=== PATIENT | female | born 1975 | race African-American/Black ===

== ENCOUNTER 2017-06-16 06:42 | Inpatient (IN) | payer MEDICARE, MEDICAID ==
[~2017-06-16] VITALS: Ht 152.4 cm; Wt 63.1 kg
[2017-06-16] VITALS (22 sets, daily range): BP systolic 89–163; BP diastolic 23–107
[2017-06-16] MEDS ORDERED: ALBUTEROL (0.083%) 2.5MG/3ML NEB HHN STA ×3 (06:53→12:48)
[2017-06-16] MEDS ORDERED: METHYLPREDNISOLONE SOD SUCC 125 MG/2 ML VIAL IV STA (06:53)
[2017-06-16] MEDS ORDERED: IPRATROPIUM BROMIDE (0.02%) 0.5MG/2.5ML NEB HHN STA (06:53)
[2017-06-16] MEDS ORDERED: ALBUTEROL (0.5%) 2.5MG/0.5ML NEB HHN ONE (07:41)
[2017-06-16] MEDS ORDERED: MAGNESIUM 2 G PREMIX 50 ML IV STA (08:25)
[2017-06-16 09:51] LABS: BASOPHILS % 0.3 % (0.0-2.0); EOSINOPHILS % 0.1 % (0.0-5.0); HEMATOCRIT. 38.7 % (36.0-48.0); LYMPHOCYTES % 7.3 % (20.0-50.0); MEAN CORPUSCULAR HEMOGLOBIN 31.9 pg (28.0-32.0); MEAN CORPUSCULAR VOLUME 94.8 fL (81.0-99.0); MEAN PLATELET VOLUME 6.2 fl (7.4-10.4); NEUTROPHILS % 89.3 % (40.0-76.0); PLATELET 555 x1000/uL (130-400); RED BLOOD CELL COUNT 4.08 mill/uL (4.2-5.4)
[2017-06-16 09:55] LABS: CHLORIDE 109 mEq/L (98-107)
[2017-06-16 10:10] LABS: BG BASE EXCESS -7.3 mmol/L (-2.0-2.0); BG CARBOXYHEMOGLOBIN 0.6 % (0.5-1.5); BG DEOXYHEMOGLOBIN 4.9 % (0.0-5.0); BG FRACTION INSPIRED OXYGEN 32; BG METHEMOGLOBIN 0.3 % (0.0-1.5); BG OXYGEN SATURATION 95.1 % (92.0-98.5); BG OXYHEMOGLOBIN 94.2 % (94.0-97.0); BG PCO2 27.3 mmHg (35.0-45.0); BG PH 7.386 (7.350-7.450); BG PO2 77.6 mmHg (75.0-100.0); BG SAMPLE SITE RIGHT RADIAL; BG TOTAL HEMOGLOBIN 14.5 g/dL (12.0-18.0); BG VENT MODE NASAL CANNULA
[2017-06-16] MEDS ORDERED: IPRATROPIUM/ALBUTEROL 0.5-3(2.5)MG/3ML NEB HHN PRN (11:30)
[2017-06-16] MEDS ORDERED: CLONIDINE 0.1MG TABLET PO PRN (12:15)
[2017-06-16] MEDS ORDERED: DIPHENHYDRAMINE 50MG/ML VIAL IV PRN (12:15)
[2017-06-16] MEDS ORDERED: HYDROCODONE/ACETAMINOPHEN 5/325MG TABLET PO PRN (12:15)
[2017-06-16] MEDS ORDERED: ONDANSETRON HCL 4MG/2ML VIAL IV PRN (12:15)
[2017-06-16] MEDS ORDERED: ACETAMINOPHEN 325MG TABLET PO PRN (12:15)
[2017-06-16] MEDS ORDERED: AZITHROMYCIN 500 MG in DEXT 5% WATER 250 ML IV SCH (14:00)
[2017-06-16] MEDS: IPRATROPIUM/ALBUTEROL 0.5-3(2.5)MG/3ML NEB HHN SCH ×3 (14:25→20:48)
[2017-06-16] MEDS: BUDESONIDE 0.5MG/2ML NEB HHN SCH ×2 (14:25→20:48)
[2017-06-16] MEDS ORDERED: DILTIAZEM HCL 60MG TABLET PO SCH (14:45)
[2017-06-16] MEDS: METHYLPREDNISOLONE SOD SUCC 40 MG/ML VIAL IV SCH ×2 (15:22→20:39)
[2017-06-16] MEDS: AZITHROMYCIN 500 MG in SODIUM CHLORIDE 0.9% 250 ML IV SCH (16:18)
[2017-06-16 16:29] LABS: BG BASE EXCESS -7.2 mmol/L (-2.0-2.0); BG BILEVEL POS AIRWAY PRESSURE 15/5; BG CARBOXYHEMOGLOBIN 0.5 % (0.5-1.5); BG DEOXYHEMOGLOBIN 2.1 % (0.0-5.0); BG FRACTION INSPIRED OXYGEN 40; BG HCO3 ACT 18.5 mmol/L (22.0-26.0); BG METHEMOGLOBIN 0.2 % (0.0-1.5); BG OXYGEN SATURATION 97.9 % (92.0-98.5); BG OXYHEMOGLOBIN 97.2 % (94.0-97.0); BG PCO2 38.1 mmHg (35.0-45.0); BG PH 7.304 (7.350-7.450); BG PO2 114.2 mmHg (75.0-100.0); BG SAMPLE SITE RIGHT RADIAL; BG TOTAL HEMOGLOBIN 13.8 g/dL (12.0-18.0); BG VENT MODE MASK - BIPAP; BG VENT RATE 18 set
[2017-06-16] MEDS: MONTELUKAST SODIUM 10MG TABLET PO SCH (17:37)
[2017-06-16] MEDS: CEFTRIAXONE 1 G PREMIX 50 ML IV SCH (17:37)
[2017-06-16] MEDS ORDERED: PROPOFOL 10MG/ML 100ML 100 ML IV PRN (18:00)
[2017-06-16 19:59] LABS: BG BASE EXCESS -7.2 mmol/L (-2.0-2.0); BG BILEVEL POS AIRWAY PRESSURE 15/5; BG CARBOXYHEMOGLOBIN 0.3 % (0.5-1.5); BG DEOXYHEMOGLOBIN 1.5 % (0.0-5.0); BG FRACTION INSPIRED OXYGEN 40; BG METHEMOGLOBIN 0.1 % (0.0-1.5); BG OXYGEN SATURATION 98.5 % (92.0-98.5); BG OXYHEMOGLOBIN 98.1 % (94.0-97.0); BG PCO2 40.9 mmHg (35.0-45.0); BG PH 7.286 (7.350-7.450); BG PO2 140.3 mmHg (75.0-100.0); BG SAMPLE SITE RIGHT BRACHIAL; BG TOTAL HEMOGLOBIN 13.8 g/dL (12.0-18.0); BG VENT MODE MASK - BIPAP; BG VENT RATE 18 set
[2017-06-16] MEDS: LORAZEPAM 2MG/ML CPJ IV SCH (21:24)
[2017-06-16] MEDS: DILTIAZEM HCL 60MG TABLET PO SCH (21:39)
[2017-06-16 21:56] LABS: BG BILEVEL POS AIRWAY PRESSURE 15/5; BG CARBOXYHEMOGLOBIN 0.5 % (0.5-1.5); BG DEOXYHEMOGLOBIN 1.3 % (0.0-5.0); BG FRACTION INSPIRED OXYGEN 40; BG HCO3 ACT 20.2 mmol/L (22.0-26.0); BG METHEMOGLOBIN 0.1 % (0.0-1.5); BG OXYGEN SATURATION 98.7 % (92.0-98.5); BG OXYHEMOGLOBIN 98.1 % (94.0-97.0); BG PCO2 42.5 mmHg (35.0-45.0); BG PH 7.295 (7.350-7.450); BG PO2 141.5 mmHg (75.0-100.0); BG SAMPLE SITE RIGHT RADIAL; BG TOTAL HEMOGLOBIN 13.6 g/dL (12.0-18.0); BG VENT MODE MASK - BIPAP
[2017-06-17] VITALS (57 sets, daily range): BP systolic 90–153; BP diastolic 43–105
[2017-06-17] MEDS: IPRATROPIUM/ALBUTEROL 0.5-3(2.5)MG/3ML NEB HHN SCH ×6 (00:12→19:50)
[2017-06-17] MEDS: LORAZEPAM 2MG/ML CPJ IV SCH ×4 (03:36→21:33)
[2017-06-17] MEDS: METHYLPREDNISOLONE SOD SUCC 40 MG/ML VIAL IV SCH (05:21)
[2017-06-17] MEDS: DILTIAZEM HCL 60MG TABLET PO SCH ×3 (05:22→21:33)
[2017-06-17 05:54] LABS: BASOPHILS % 0.1 % (0.0-2.0); HEMATOCRIT. 37.1 % (36.0-48.0); HEMOGLOBIN. 12.4 g/dL (12.0-16.0); LYMPHOCYTES % 10.5 % (20.0-50.0); MEAN CORPUSCULAR HEMOGLOBIN 31.9 pg (28.0-32.0); MEAN CORPUSCULAR VOLUME 95.6 fL (81.0-99.0); MEAN PLATELET VOLUME 6.9 fl (7.4-10.4); MONOCYTES % 4.8 % (2.0-8.0); NEUTROPHILS % 84.6 % (40.0-76.0); PLATELET 577 x1000/uL (130-400); RED BLOOD CELL COUNT 3.88 mill/uL (4.2-5.4); RED CELL DISTRIBUTION WIDTH 15.2 % (11.6-14.6)
[2017-06-17 06:15] LABS: CHLORIDE 106 mEq/L (98-107)
[2017-06-17 06:30] LABS: HDL CHOLESTEROL 49 mg/dL (40-59); LDL CHOLESTEROL 128 mg/dL (5-100)
[2017-06-17 07:43] LABS: CLARITY URINE CLOUDY (CLEAR); COLOR URINE YELLOW (YELLOW); KETONES URINE TRACE (NEGATIVE); LEUKOCYTE ESTERASE URINE NEGATIVE (NEGATIVE); NITRITE URINE NEGATIVE (NEGATIVE); OCCULT BLOOD URINE 3+ (NEGATIVE); PROTEIN URINE 2+ (NEGATIVE); SPECIFIC GRAVITY URINE 1.026 (1.005-1.030); UROBILINOGEN URINE 0.2 E.U./dL (0.2-1.0)
[2017-06-17 07:59] LABS: *AMPHETAMINES SCREEN URINE NEGATIVE (NEGATIVE); *BARBITURATES SCREEN URINE NEGATIVE (NEGATIVE); *COCAINE SCREEN URINE NEGATIVE (NEGATIVE)
[2017-06-17 08:01] LABS: METHADONE URINE SCREEN NEGATIVE (NEGATIVE); OPIATES URINE SCREEN NEGATIVE (NEGATIVE)
[2017-06-17 08:06] LABS: PHENCYCLIDINE URINE SCREEN NEGATIVE (NEGATIVE)
[2017-06-17 08:07] LABS: BG BASE EXCESS -1.4 mmol/L (-2.0-2.0); BG BILEVEL POS AIRWAY PRESSURE 15/5; BG CARBOXYHEMOGLOBIN 0.5 % (0.5-1.5); BG DEOXYHEMOGLOBIN 1.2 % (0.0-5.0); BG FRACTION INSPIRED OXYGEN 40; BG HCO3 ACT 23.9 mmol/L (22.0-26.0); BG OXYGEN SATURATION 98.8 % (92.0-98.5); BG OXYHEMOGLOBIN 98.3 % (94.0-97.0); BG PCO2 42.2 mmHg (35.0-45.0); BG PH 7.371 (7.350-7.450); BG PO2 141.9 mmHg (75.0-100.0); BG SAMPLE SITE RIGHT BRACHIAL; BG TOTAL HEMOGLOBIN 13.9 g/dL (12.0-18.0); BG VENT MODE MASK - BIPAP
[2017-06-17 08:07] LABS: *BENZODIAZEPINES SCREEN URINE NEGATIVE (NEGATIVE)
[2017-06-17 08:08] LABS: CANNABINOID URINE SCREEN PRESUMTIVE POSITIVE (NEGATIVE)
[2017-06-17] MEDS ORDERED: FAMOTIDINE 20MG TABLET PO ONE (09:00)
[2017-06-17] MEDS: BUDESONIDE 0.5MG/2ML NEB HHN SCH ×2 (09:18→19:50)
[2017-06-17] MEDS: LORATADINE 10MG TABLET PO SCH (09:58)
[2017-06-17] MEDS: FAMOTIDINE 20MG TABLET PO SCH ×2 (10:30→20:23)
[2017-06-17] MEDS: METHYLPREDNISOLONE SOD SUCC 125 MG/2 ML VIAL IV SCH ×2 (12:33→17:54)
[2017-06-17] MEDS ORDERED: LIDOCAINE HCL/PF 1% 2ML VIAL ONE (13:20)
[2017-06-17] MEDS: BENZONATATE 100MG CAPSULE PO SCH ×2 (14:52→21:32)
[2017-06-17] MEDS: AZITHROMYCIN 500 MG in SODIUM CHLORIDE 0.9% 250 ML IV SCH (14:53)
[2017-06-17] MEDS: CEFTRIAXONE 1 G PREMIX 50 ML IV SCH (14:53)
[2017-06-17] MEDS: MONTELUKAST SODIUM 10MG TABLET PO SCH (16:16)
[2017-06-17] MEDS: ATORVASTATIN CALCIUM 10MG TABLET PO SCH (20:23)
[2017-06-18] VITALS (39 sets, daily range): BP systolic 105–169; BP diastolic 54–117
[2017-06-18] MEDS: IPRATROPIUM/ALBUTEROL 0.5-3(2.5)MG/3ML NEB HHN SCH ×6 (00:23→20:04)
[2017-06-18] MEDS: METHYLPREDNISOLONE SOD SUCC 125 MG/2 ML VIAL IV SCH ×4 (00:42→17:05)
[2017-06-18] MEDS: LORAZEPAM 2MG/ML CPJ IV SCH ×4 (04:20→21:14)
[2017-06-18] MEDS: DILTIAZEM HCL 60MG TABLET PO SCH ×3 (05:42→21:13)
[2017-06-18] MEDS: BENZONATATE 100MG CAPSULE PO SCH ×3 (05:42→21:13)
[2017-06-18 05:57] LABS: HEMATOCRIT. 34.9 % (36.0-48.0); HEMOGLOBIN. 11.1 g/dL (12.0-16.0); MEAN CORPUSCULAR HEMOGLOBIN 30.6 pg (28.0-32.0); MEAN CORPUSCULAR VOLUME 96.7 fL (81.0-99.0); MEAN PLATELET VOLUME 6.9 fl (7.4-10.4); PLATELET 518 x1000/uL (130-400); RED BLOOD CELL COUNT 3.61 mill/uL (4.2-5.4); RED CELL DISTRIBUTION WIDTH 15.5 % (11.6-14.6)
[2017-06-18 06:21] LABS: CHLORIDE 106 mEq/L (98-107)
[2017-06-18 07:27] LABS: PLATELET ESTIMATE INCREAS
[2017-06-18] MEDS: BUDESONIDE 0.5MG/2ML NEB HHN SCH ×2 (08:30→20:04)
[2017-06-18] MEDS: FAMOTIDINE 20MG TABLET PO SCH ×2 (09:07→21:13)
[2017-06-18] MEDS: LORATADINE 10MG TABLET PO SCH (09:07)
[2017-06-18] MEDS: METRONIDAZOLE 500MG TABLET PO SCH ×2 (09:07→21:13)
[2017-06-18] MEDS: CEFTRIAXONE 1 G PREMIX 50 ML IV SCH (09:08)
[2017-06-18] MEDS: AZITHROMYCIN 500 MG in SODIUM CHLORIDE 0.9% 250 ML IV SCH (13:53)
[2017-06-18] MEDS: MONTELUKAST SODIUM 10MG TABLET PO SCH (16:23)
[2017-06-18] MEDS: ATORVASTATIN CALCIUM 10MG TABLET PO SCH (21:13)
[2017-06-19] VITALS (11 sets, daily range): BP systolic 106–151; BP diastolic 55–87
[2017-06-19] MEDS: IPRATROPIUM/ALBUTEROL 0.5-3(2.5)MG/3ML NEB HHN SCH ×7 (00:34→21:51)
[2017-06-19] MEDS: METHYLPREDNISOLONE SOD SUCC 125 MG/2 ML VIAL IV SCH ×4 (02:15→18:38)
[2017-06-19] MEDS: LORAZEPAM 2MG/ML CPJ IV SCH ×4 (06:35→21:31)
[2017-06-19] MEDS: BENZONATATE 100MG CAPSULE PO SCH ×3 (06:36→21:26)
[2017-06-19] MEDS: DILTIAZEM HCL 60MG TABLET PO SCH ×3 (06:36→21:29)
[2017-06-19] MEDS: BUDESONIDE 0.5MG/2ML NEB HHN SCH ×2 (07:54→21:51)
[2017-06-19 09:09] LABS: HEMATOCRIT. 34.2 % (36.0-48.0); HEMOGLOBIN. 11.4 g/dL (12.0-16.0); MEAN CORPUSCULAR HEMOGLOBIN 31.8 pg (28.0-32.0); MEAN CORPUSCULAR VOLUME 95.1 fL (81.0-99.0); MEAN PLATELET VOLUME 6.8 fl (7.4-10.4); PLATELET 542 x1000/uL (130-400); RED CELL DISTRIBUTION WIDTH 15.2 % (11.6-14.6)
[2017-06-19] MEDS: LORATADINE 10MG TABLET PO SCH (09:12)
[2017-06-19] MEDS: METRONIDAZOLE 500MG TABLET PO SCH ×2 (09:12→21:26)
[2017-06-19] MEDS: FAMOTIDINE 20MG TABLET PO SCH ×2 (09:12→21:26)
[2017-06-19 09:33] LABS: CHLORIDE 106 mEq/L (98-107)
[2017-06-19] MEDS: CEFTRIAXONE 1 G PREMIX 50 ML IV SCH (10:03)
[2017-06-19] MEDS ORDERED: TERBUTALINE SULFATE 1MG/ML VIAL SUBCUT NR (14:00)
[2017-06-19 14:02] LABS: PLATELET ESTIMATE INCREASED
[2017-06-19] MEDS: AZITHROMYCIN 500 MG in SODIUM CHLORIDE 0.9% 250 ML IV SCH (14:34)
[2017-06-19] MEDS: MONTELUKAST SODIUM 10MG TABLET PO SCH (16:35)
[2017-06-19] MEDS: ATORVASTATIN CALCIUM 10MG TABLET PO SCH (21:30)
[2017-06-20] VITALS (12 sets, daily range): BP systolic 97–141; BP diastolic 56–88
[2017-06-20] MEDS: METHYLPREDNISOLONE SOD SUCC 125 MG/2 ML VIAL IV SCH ×2 (01:35→05:58)
[2017-06-20] MEDS: IPRATROPIUM/ALBUTEROL 0.5-3(2.5)MG/3ML NEB HHN SCH ×6 (02:13→20:41)
[2017-06-20] MEDS: LORAZEPAM 2MG/ML CPJ IV SCH ×4 (04:46→22:00)
[2017-06-20] MEDS: BENZONATATE 100MG CAPSULE PO SCH ×3 (05:58→21:37)
[2017-06-20] MEDS: DILTIAZEM HCL 60MG TABLET PO SCH ×3 (05:58→21:37)
[2017-06-20 07:54] LABS: EOSINOPHILS % 0.1 % (0.0-5.0); HEMATOCRIT. 34.7 % (36.0-48.0); HEMOGLOBIN. 11.2 g/dL (12.0-16.0); LYMPHOCYTES % 9.3 % (20.0-50.0); MEAN CORPUSCULAR HEMOGLOBIN 30.8 pg (28.0-32.0); MEAN CORPUSCULAR VOLUME 95.6 fL (81.0-99.0); MONOCYTES % 4.2 % (2.0-8.0); NEUTROPHILS % 86.4 % (40.0-76.0); PLATELET 524 x1000/uL (130-400); RED BLOOD CELL COUNT 3.63 mill/uL (4.2-5.4); RED CELL DISTRIBUTION WIDTH 15.2 % (11.6-14.6)
[2017-06-20 08:11] LABS: CHLORIDE 106 mEq/L (98-107)
[2017-06-20] MEDS: LORATADINE 10MG TABLET PO SCH (08:24)
[2017-06-20] MEDS: CEFTRIAXONE 1 G PREMIX 50 ML IV SCH (08:24)
[2017-06-20] MEDS: FAMOTIDINE 20MG TABLET PO SCH ×2 (08:24→21:36)
[2017-06-20] MEDS: METRONIDAZOLE 500MG TABLET PO SCH ×2 (08:24→21:36)
[2017-06-20] MEDS: BUDESONIDE 0.5MG/2ML NEB HHN SCH ×2 (09:23→20:42)
[2017-06-20] MEDS: METHYLPREDNISOLONE SOD SUCC 40 MG/ML VIAL IV SCH ×2 (12:27→21:38)
[2017-06-20] MEDS: THEOPHYLLINE ANHYDROUS 80 MG/15 ML 120ML PO SCH ×3 (13:34→23:59)
[2017-06-20] MEDS: AZITHROMYCIN 500 MG in SODIUM CHLORIDE 0.9% 250 ML IV SCH (15:18)
[2017-06-20] MEDS: MONTELUKAST SODIUM 10MG TABLET PO SCH (17:04)
[2017-06-20] MEDS: ATORVASTATIN CALCIUM 10MG TABLET PO SCH (21:36)
[2017-06-21] VITALS (12 sets, daily range): BP systolic 122–138; BP diastolic 62–88
[2017-06-21] MEDS: IPRATROPIUM/ALBUTEROL 0.5-3(2.5)MG/3ML NEB HHN SCH ×6 (00:14→20:46)
[2017-06-21] MEDS: LORAZEPAM 2MG/ML CPJ IV SCH ×4 (04:00→22:20)
[2017-06-21] MEDS: DILTIAZEM HCL 60MG TABLET PO SCH ×3 (05:59→21:55)
[2017-06-21] MEDS: THEOPHYLLINE ANHYDROUS 80 MG/15 ML 120ML PO SCH ×3 (05:59→16:36)
[2017-06-21] MEDS: METHYLPREDNISOLONE SOD SUCC 40 MG/ML VIAL IV SCH (05:59)
[2017-06-21] MEDS: BENZONATATE 100MG CAPSULE PO SCH ×3 (05:59→21:54)
[2017-06-21] MEDS: FAMOTIDINE 20MG TABLET PO SCH ×2 (08:17→21:54)
[2017-06-21] MEDS: METRONIDAZOLE 500MG TABLET PO SCH ×2 (08:17→21:54)
[2017-06-21] MEDS: LORATADINE 10MG TABLET PO SCH (08:17)
[2017-06-21] MEDS: CEFTRIAXONE 1 G PREMIX 50 ML IV SCH (08:18)
[2017-06-21] MEDS: BUDESONIDE 0.5MG/2ML NEB HHN SCH ×2 (08:58→20:46)
[2017-06-21] MEDS ORDERED: GUAIFENESIN/CODEINE 100-10MG/5ML UDC PO PRN (10:00)
[2017-06-21] MEDS ORDERED: TERBUTALINE SULFATE 1MG/ML VIAL SUBCUT NR (10:00)
[2017-06-21] MEDS: AZITHROMYCIN 500 MG in SODIUM CHLORIDE 0.9% 250 ML IV SCH (14:56)
[2017-06-21] MEDS: MONTELUKAST SODIUM 10MG TABLET PO SCH (16:35)
[2017-06-21] MEDS: FLUTICASONE PROPIONATE 50MCG/SPRAY BOTTLE BOTHNSTRLS SCH (21:53)
[2017-06-21] MEDS: ATORVASTATIN CALCIUM 10MG TABLET PO SCH (21:54)
[2017-06-22] VITALS (9 sets, daily range): BP systolic 109–150; BP diastolic 58–78
[2017-06-22] MEDS: IPRATROPIUM/ALBUTEROL 0.5-3(2.5)MG/3ML NEB HHN SCH ×3 (00:42→12:00)
[2017-06-22] MEDS: THEOPHYLLINE ANHYDROUS 80 MG/15 ML 120ML PO SCH ×3 (06:00→12:04)
[2017-06-22] MEDS: BENZONATATE 100MG CAPSULE PO SCH (06:30)
[2017-06-22] MEDS: DILTIAZEM HCL 60MG TABLET PO SCH ×2 (06:31→14:23)
[2017-06-22 07:11] LABS: BASOPHILS % 0.1 % (0.0-2.0); EOSINOPHILS % 0.1 % (0.0-5.0); HEMATOCRIT. 33.6 % (36.0-48.0); HEMOGLOBIN. 10.9 g/dL (12.0-16.0); LYMPHOCYTES % 20.6 % (20.0-50.0); MEAN CORPUSCULAR HEMOGLOBIN 30.8 pg (28.0-32.0); MEAN CORPUSCULAR VOLUME 94.8 fL (81.0-99.0); MEAN PLATELET VOLUME 6.9 fl (7.4-10.4); NEUTROPHILS % 72.2 % (40.0-76.0); PLATELET 526 x1000/uL (130-400); RED BLOOD CELL COUNT 3.55 mill/uL (4.2-5.4); RED CELL DISTRIBUTION WIDTH 15.2 % (11.6-14.6)
[2017-06-22 08:08] LABS: CHLORIDE 106 mEq/L (98-107)
[2017-06-22] MEDS: CEFTRIAXONE 1 G PREMIX 50 ML IV SCH (08:24)
[2017-06-22] MEDS: FLUTICASONE PROPIONATE 50MCG/SPRAY BOTTLE BOTHNSTRLS SCH (08:24)
[2017-06-22] MEDS: LORATADINE 10MG TABLET PO SCH (08:24)
[2017-06-22] MEDS: METRONIDAZOLE 500MG TABLET PO SCH (08:24)
[2017-06-22] MEDS: FAMOTIDINE 20MG TABLET PO SCH (08:33)
[2017-06-22] MEDS ORDERED: PREDNISONE 20MG TABLET PO SCH (09:00)
[2017-06-22] MEDS: BUDESONIDE 0.5MG/2ML NEB HHN SCH (09:36)
[2017-06-22] MEDS ORDERED: TERBUTALINE SULFATE 1MG/ML VIAL SUBCUT SCH (11:15)
[2017-06-22] MEDS: AZITHROMYCIN 500 MG in SODIUM CHLORIDE 0.9% 250 ML IV SCH (14:03)
== END 2017-06-22 14:30 | disposition home or self-care (01) | DRG 871 ==
LOC: ER 06:54 → 3WST 10:30 → ENRESERV 11:09 → CANRESERV 11:09 → EDBEDREQSVC 11:31 → ENRESERV 12:12 → MICUSO 19:05 → 3WST 06-18 15:54
PROVIDERS: ADMIT Internal Medicine; ATTEND Internal Medicine
PROC: 5A09457 Assistance with Respiratory Ventilation, 24-96 Consecutive Hours, Continuous Positive Airway Pressure (ICD-10-PCS; principal; 2017-06-16)
DX: A41.9 Sepsis, unspecified organism (principal); J96.01 Acute respiratory failure with hypoxia; E87.3 Alkalosis; J44.0 Chronic obstructive pulmonary disease with (acute) lower respiratory infection; E11.65 Type 2 diabetes mellitus with hyperglycemia; J45.901 Unspecified asthma with (acute) exacerbation; I50.40 Unspecified combined systolic (congestive) and diastolic (congestive) heart failure; I11.0 Hypertensive heart disease with heart failure; A59.01 Trichomonal vulvovaginitis; D72.823 Leukemoid reaction; B35.9 Dermatophytosis, unspecified; F12.90 Cannabis use, unspecified, uncomplicated; J20.9 Acute bronchitis, unspecified; T38.0X5A Adverse effect of glucocorticoids and synthetic analogues, initial encounter; Y92.89 Other specified places as the place of occurrence of the external cause; Z87.891 Personal history of nicotine dependence; Z88.1 Allergy status to other antibiotic agents
CPT/HCPCS: 36415; 36600; 71045; 71250; 80048; 80053; 80061; 80305; 81003; 82375; 82805; 83036; 83735; 84443; 84484; 85025; 87040; 87070; 87086; 87804; 93005; 93306; 94640; 94660; 96365; 96366; 96375; 99291; J0456; J0696; J2060; J2405; J2920; J2930; J3105; J3475; J3490; J7040; J7050; J7060; J7512; J7611; J7620; J7626